=== PATIENT | female | born 1980 | race Hispanic/Latino ===

== ENCOUNTER 2019-07-15 07:58 | Inpatient (IN) | payer SELFPAY ==
[2019-07-15] MEDS ORDERED: HYDROcodone/Acetaminophen 5/325 mg Tablet PO PRN (08:25)
[2019-07-15] MEDS ORDERED: Lidocaine 1% (PF) 30 ML VIAL SC PRN (08:25)
[2019-07-15] MEDS ORDERED: Methylergonovine 0.2 MG/ML VIAL IM PRN (08:25)
[2019-07-15] MEDS ORDERED: Ibuprofen 800 MG TAB PO PRN (08:25)
[2019-07-15] MEDS ORDERED: hydrALAZINE 20 MG/ML VIAL SLOW IVP PRN (08:25)
[2019-07-15] MEDS ORDERED: Promethazine HCl 25 MG/ML VIAL IM PRN (08:25)
[2019-07-15] MEDS ORDERED: Ondansetron PF 4 MG/2 ML Vial IVP PRN (08:25)
[2019-07-15] MEDS ORDERED: Carboprost 250 MCG/ML AMP IM PRN (08:25)
[2019-07-15] MEDS ORDERED: Misoprostol 200 MCG TAB PR PRN (08:25)
[2019-07-15] MEDS ORDERED: NS / Oxytocin 40 units/1000ml 1,000 ML IV PRN (08:25)
[2019-07-15] MEDS ORDERED: Butorphanol Tartrate 1 MG/ML VIAL SLOW IVP PRN (08:25)
[2019-07-15 08:30] VITALS: BMI 26.5
[2019-07-15] MEDS: Lactated Ringer's 1,000 ML IV SCH ×3 (08:57→19:57)
[2019-07-15] MEDS: Misoprostol 100 MCG TAB PO SCH ×2 (09:31→13:46)
[2019-07-15 09:32] LABS: Hemoglobin 12.7 g/dL (12.0-16.0); Mean Corpuscular HGB CONC 35.5 g/dL (32.0-36.0); Mean Corpuscular Hemoglobin 32.5 pg (27.0-31.0); Mean Corpuscular Volume 91.6 fL (78.0-98.0); Mean Platelet Volume 6.8 fL (7.4-10.4); Platelet Count 219 thou/uL (130-400); Red Blood Cell (RBC) Count 3.89 mill/uL (4.20-5.40); White Blood Cell (WBC) Count 6.7 thou/uL (4.8-10.8)
[2019-07-15 09:37] VITALS: BP 109/63; TEMP 98.7
[2019-07-15] MEDS ORDERED: Fentanyl 4 mcg/Bup 0.1% Cadd 0 ML ONE (12:33)
[2019-07-15] MEDS: Misoprostol 200 MCG TAB PO SCH ×2 (18:17→21:19)
[2019-07-16] MEDS ORDERED: Misoprostol 100 MCG TAB VAG SCH (01:00)
[2019-07-16] MEDS ORDERED: Misoprostol 200 MCG TAB VAG SCH (01:00)
[2019-07-16] MEDS ORDERED: Misoprostol 200 MCG TAB PO SCH (07:30)
== END 2019-07-16 10:18 | disposition home or self-care (01) | DRG 805 ==
LOC: L&D 07:58
PROVIDERS: ADMIT Family Medicine; ATTEND Family Medicine
PROC: 10E0XZZ Delivery of Products of Conception, External Approach (ICD-10-PCS; principal; 2019-07-15)
PROC: 3E0P7VZ Introduction of Hormone into Female Reproductive, Via Natural or Artificial Opening (ICD-10-PCS; 2019-07-15)
DX: O02.1 Missed abortion (principal); O24.12 Pre-existing type 2 diabetes mellitus, in childbirth; Z37.1 Single stillbirth; E11.9 Type 2 diabetes mellitus without complications; Z79.4 Long term (current) use of insulin; Z3A.14 14 weeks gestation of pregnancy
CPT/HCPCS: 36415; 36416; 85027; 86850; 86900; 86901; 88305

== ENCOUNTER 2020-04-04 09:46 | Inpatient (IN) | payer OTHER, SELFPAY ==
[2020-04-04] MEDS ORDERED: Senokot S 8.6-50 MG TAB PO PRN (12:14)
[2020-04-04] MEDS ORDERED: Bisacodyl 10 MG SUPP PR PRN (12:14)
[2020-04-04] MEDS ORDERED: Dextrose 50% Abboject 50 ML SYRINGE SLOW IVP PRN (12:14)
[2020-04-04] MEDS ORDERED: Dextrose 5% in Water 1,000 ML IV PRN (12:14)
[2020-04-04] MEDS: Acetaminophen 325 MG TAB PO PRN ×2 (12:50→18:39)
[2020-04-04 13:06] LABS: #Lymphocytes 0.8 thou/uL (1.20-3.40); #Monocytes 0.2 thou/uL (0.11-0.59); #Neutrophils 4.8 thou/uL (1.40-6.50); %Basophils 0.2 % (0.0-1.0); %Eosinophils 0.3 % (0.0-10.0); %Lymphocytes 12.8 % (21.0-51.0); %Monocytes 3.5 % (0.0-10.0); %Neutrophils 83.2 % (42.0-75.0); Hemoglobin 8.9 g/dL (12.0-16.0); Mean Corpuscular HGB CONC 34.6 g/dL (32.0-36.0); Mean Corpuscular Hemoglobin 30.5 pg (27.0-31.0); Mean Corpuscular Volume 88.1 fL (78.0-98.0); Mean Platelet Volume 7.1 fL (7.4-10.4); Platelet Count 257 thou/uL (130-400); RBC Distribution Width 11.4 % (11.5-14.5); Red Blood Cell (RBC) Count 2.91 mill/uL (4.20-5.40); White Blood Cell (WBC) Count 5.8 thou/uL (4.8-10.8)
--- NOTE | 2020-04-04 13:11 | HP ---
REASON FOR ADMISSION: Possible COVID pneumonia, acute respiratory failure with hypoxia, diabetic ketoacidosis earlier. HISTORY OF PRESENTING ILLNESS: The patient initially went to [facility] Emergency Room and was hospitalized overnight for bilateral pneumonia with suspected COVID and DKA. The patient was on insulin drip 1 unit/hour, which was discontinued at the time of transfer. She has had bilateral lower lobe pneumonia. The patient was saturating 96% on 2 L last night and this morning, required high-flow oxygen to keep her saturations up. Her blood pressure also dropped to 89/75, and a decision was made to transfer because she probably will require Pulmonary/Critical Care, which was not available at [facility]. She has had a blood gas done, which showed a pH 7.4, pCO2 of 25, PO2 of 65, and bicarb on the blood gas was 16. Dr. Marianne Ball who gave me a report states her creatinine is normal. Her liver function tests were also within normal limits. She has had a CAT scan of the abdomen and pelvis, which showed infiltrate in the lower lobes in the lungs, otherwise was within normal limits per Dr. Ball. Her chest x-ray showed bilateral lower lobe infiltrates. The plan was to start her on Levophed and transfer her here to critical care unit because of hypotension and acute respiratory failure with suspected COVID pneumonia. PAST MEDICAL AND SURGICAL HISTORY: Diabetes mellitus, type 1. No other medical or surgical histories. CURRENT MEDICATIONS: The patient is on Lantus 28 units subcu at bedtime and Humalog sliding scale. ALLERGIES: NO KNOWN DRUG ALLERGIES. PERSONAL HISTORY: Does not abuse alcohol or drugs. No history of smoking. FAMILY HISTORY: She lives with her . CODE STATUS: Full. 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 REVIEW OF SYSTEMS: Cannot be accurately obtained as the patient is on high-flow oxygen and is coughing pretty frequently, and we will try to obtain the same when she is more stable. PHYSICAL EXAMINATION: GENERAL: The patient is a 39-year-old female who is currently in mild-to- moderate respiratory distress with coughing spells. She is on high-flow oxygen. VITAL SIGNS: Blood pressure 114/76, pulse 90 per minute, respiratory rate 22 per minute, temperature 103 degrees, and saturating 94% on high-flow oxygen. NECK: Supple. No elevated JVD. HEENT: Eyes; extraocular muscles intact. Pupils reacting to light. Oral cavity, mucous membranes are dry. No exudates or congestion. CARDIOVASCULAR SYSTEM: S1, S2 heard. Regular rhythm. Tachycardic. RESPIRATORY SYSTEM: Air entry 1+ bilateral. Scattered rhonchi plus bilateral. ABDOMEN: Soft, bowel sounds heard. No tenderness, rigidity, or guarding. EXTREMITIES: No peripheral edema or calf tenderness. VASCULAR SYSTEM: Peripheral pulses, 1+ bilateral. No ischemic ulcerations or gangrene. CENTRAL NERVOUS SYSTEM: No gross focal deficits noted. The patient is alert, awake, and oriented well. PSYCHIATRIC SYSTEM: The patient's mood is euthymic. No hallucinations or delusions. LABORATORY DATA: Please note, all her labs were done at [facility], and we will try to review them as and when they arrive. A blood gas shows a pH 7.4, pCO2 of 25, PO2 of 65, bicarb on the blood gas was 16 this morning. IMAGING: Chest x-ray done showed bilateral lower lobe infiltrates and CT abdomen and pelvis just confirmed the pneumonia with no acute intraabdominal abnormality , all of these were per verbal sign-out from Dr. Marianne Ball. CLINICAL IMPRESSION AND PLAN: The patient will be admitted to ICU for acute respiratory failure with hypoxia, on high-flow oxygen, now possible COVID pneumonia, resolving diabetic ketoacidosis. We will continue her on Lantus 10 units subcu twice daily. No further fluids will be given instead the patient will be on oral diet as tolerated. She is not requiring Levophed as her blood pressure is stable at present. I have spoken to Dr. Dodson for possible initiation of remdesivir or plasma. Her COVID-19 test is pending. The smear was obtained yesterday. We will be in touch with [facility] to get the results of the same. We will empirically place her on Levaquin for now. Motrin p.r.n. for fever more than 101. We will obtain labs here including CRP, ferritin, LDH, respiratory cultures if she can provide one. The patient mostly has dry cough with no expectoration. She will be on insulin Humalog coverage a.c. and at bedtime with Lantus as mentioned above. I tried to talk to the patient's family with the given spouse number, but the person who picked up the phone does not communicate in German and was suspicious of finding out who I am despite saying 3 times that I was a physician calling from [facility]. The conversation did not proceed further and we will try to update the family as and when they arrive at bedside. Job ID: [id number] MTDD
--- NOTE | 2020-04-04 13:13 | RAD ---
Exam: Chest one view HISTORY:Evaluate infiltrates. Comparison: None FINDINGS: Cardiac silhouette: Normal Aorta: Unremarkable Pulmonary vessels: Normal Costophrenic angles: Bilateral pleural effusions LUNGS: Bibasilar infiltrates, along with additional bilateral suprahilar infiltrates. Pneumothorax: None Osseous abnormalities: None IMPRESSION: Pleural and parenchymal changes. Continued surveillance to ensure resolution is recommend ed
[2020-04-04] MEDS ORDERED: SODIUM CHLORIDE 0.9% FS SCH (13:15)
[2020-04-04] MEDS ORDERED: [UNRECOGNIZED DRUG - OTHER] FS SCH (13:15)
[2020-04-04 13:45] LABS: ALT (SGPT) 78 U/L (8-55); AST (SGOT) 86 U/L (5-34); Albumin 3.2 g/dL (3.5-5.0); Alkaline Phosphatase 273 U/L (40-110); Anion Gap 15 mmol/L (10-20); BUN (Urea Nitrogen) Less than 4 mg/dL (7.0-18.7); Bilirubin, Total 0.4 mg/dL (0.2-1.2); Calc. Creatinine Clearance 120 mL/min (70-130); Calcium 7.5 mg/dL (7.8-10.44); Carbon Dioxide 17 mmol/L (22-29); Chloride 104 mmol/L (98-107); Estimated GFR-MDRD Greater than 90; Globulin 3.4 g/dL (2.4-3.5); Glucose 177 mg/dL (70-105); Potassium 3.1 mmol/L (3.5-5.1); Protein, Total 6.6 g/dL (6.0-8.3); Sodium 133 mmol/L (136-145)
[2020-04-04 13:56] LABS: CRP (Inflammatory) 35.55 mg/dL (= or < 0.5)
--- NOTE | 2020-04-04 15:06 | CON ---
DATE OF CONSULTATION: 04/04/2020 HISTORY OF PRESENT ILLNESS: Mari Ch is a 39-year-old female who is predominantly Dominican speaking. She tells me that she has a brother that has COVID. She also has diabetes. She is transferred to [facility]. Blood gas prior to transfer showed a pH of 7.4, CO2 of 25, PO2 of 65. It is unclear how much oxygen that she is on. PAST MEDICAL HISTORY: Otherwise unremarkable. FAMILY HISTORY: Negative for lung disease in early age. SOCIAL HISTORY: She denies smoking or drinking. REVIEW OF SYSTEMS: Otherwise negative. She denies feeling poorly and actually denies being short of breath. Her only complaint when I saw her today was cough. PHYSICAL EXAMINATION: VITAL SIGNS: Heart rate 108, blood pressure 107/71, respiratory rates in the teens, oximetry is 96, and she is febrile to 103. HEAD AND NECK: Unremarkable. LUNGS: Distant and clear. HEART: Regular rhythm. ABDOMEN: Soft and nontender. EXTREMITIES: Without edema. LABORATORY DATA: White count 5.8, hemoglobin 8.9, and platelets 257. Sodium 133, potassium 3.1, chloride 104, bicarb 17, BUN 15, creatinine 0.4, and glucose 177. C-reactive protein was 35. Liver enzymes were mildly elevated. IMPRESSION: COVID-19 pneumonia. PLAN: Remdesivir and convalescent plasma per the protocol. Follow up C- reactive protein. Keep her in the ICU. Goal O2 saturation 88 to 92. Clinically, she does not appear to need intubation at this time. CRITICAL CARE TIME: 30 minutes. Job ID: [id number] MTDD
[2020-04-04] MEDS: Guaifenesin DM 100-10/5 ML UDCUP PO PRN (20:33)
[2020-04-04] MEDS: Famotidine 20 MG TAB PO SCH (20:34)
[2020-04-04] MEDS: Ibuprofen 600 MG TAB PO PRN (20:34)
[2020-04-04] MEDS: Insulin Glargine 10 UNITS in Pre-Filled Syringe 1 EACH SC SCH (20:36)
[2020-04-04] MEDS: HumaLOG 300 UNITS/3 ML VIAL SC PRN (21:10)
--- NOTE | 2020-04-05 00:48 | CON ---
DATE OF CONSULTATION: 04/04/2020 REASON FOR CONSULTATION: Diffuse pneumonia, likely COVID. 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 Her children will go to school here in town and they kind of go back and forth and she initially went to [facility] and with bilateral pneumonia suspected with COVID, was started on insulin drip because of DKA and she is requiring high-flow oxygen to keep saturations up and initial pH was 7.4, pCO2 of 25, PO2 of 65. PAST MEDICAL HISTORY: Includes type 1 diabetes, but no other history and she had been on Lantus insulin and Humalog sliding scale. She had quite a bit of nausea and lack of sense of smell and some headaches and quite a bit of dyspnea and coughing frequently, but no sputum production. No abdominal pain or diarrhea. No genitourinary symptoms. No joint symptoms or skin disorder. No neurological symptoms. PAST MEDICAL HISTORY: Type 1 one diabetes. I believe she is G3, P3. ALLERGIES: NONE. 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 Never smoker. No drug use. No alcoholic beverage use. FAMILY HISTORY: Lives with , both here as well as in [place], kind of goes back and forth with the kids to visit him and stay with him when he is there and then the kids go to school here in town. Obviously, they are out of school now with this epidemic. PHYSICAL EXAMINATION: VITAL SIGNS: T-max 103.3, blood pressure 112/67, respiratory rate 26 to 30, O2 saturation 99%. GENERAL: She appears in distress. She is tachypneic. She is upset about this development. Ocular movements conjugate. SKIN: Facial skin is flushed. LUNGS: Diminished lungs sounds. Faint crackles at the bases. HEART: S1 and S2, regular rate without murmurs. ABDOMEN: Soft, not distended or tender. No ascites. No bladder distention. No joint inflammatory activity. No edema. Pulses 1+ in dorsalis pedis. Moves extremities equally. Oriented. Follows commands. Speaks Yi mostly. LABORATORY DATA: White cell count 5.8, hemoglobin 8.9, MCV 88, 82% neutrophils. Lymphocytes are low at 800. Creatinine 0.69, ferritin 436, LDH 422. CRP was 35, albumin 3.2. There is a respiratory virus PCR panel which was negative. COVID test is pending at this point. She has been started on remdesivir. RADIOLOGY RESULTS: We have a chest x-ray with pleural parenchymal changes, bibasilar infiltrates, additional suprahilar infiltrates. ASSESSMENT: Type 1 diabetes and bilateral pneumonia, lymphocytopenia, likely COVID pneumonia. She will continue on levofloxacin and remdesivir until we have the results hopefully by tomorrow. Continue monitoring liver function tests daily as well as basic metabolic panel. I explained to the patient that remdesivir is an emergency use authorization medication which has been shown in control trial that it reduces the time course of COVID pneumonia. She still has hopes that she does not have the illness, but it is very likely that she does. We will discuss potential liver toxicity and kidney issues with administration of this drug and that she will be monitored for that. The patient agreed with the intervention at the moment. Job ID: [id number]
[2020-04-05] MEDS: Guaifenesin DM 100-10/5 ML UDCUP PO PRN ×2 (00:54→10:53)
[2020-04-05 04:37] LABS: ALT (SGPT) 94 U/L (8-55); AST (SGOT) 107 U/L (5-34); Alkaline Phosphatase 301 U/L (40-110); Anion Gap 15 mmol/L (10-20); BUN (Urea Nitrogen) 5 mg/dL (7.0-18.7); Bilirubin, Direct 0.5 mg/dL (0.1-0.3); Bilirubin, Total 0.6 mg/dL (0.2-1.2); Calc. Creatinine Clearance 129 mL/min (70-130); Calcium 7.4 mg/dL (7.8-10.44); Carbon Dioxide 19 mmol/L (22-29); Chloride 106 mmol/L (98-107); Estimated GFR-MDRD Greater than 90; Glucose 266 mg/dL (70-105); Protein, Total 6.3 g/dL (6.0-8.3); Sodium 137 mmol/L (136-145)
[2020-04-05 04:41] LABS: Potassium 2.7 mmol/L (3.5-5.1)
[2020-04-05] MEDS ORDERED: CCU ELECTROLYTE REPLACEMENT PROTOCOL FS PRN (05:29)
[2020-04-05] MEDS ORDERED: Potassium Chloride 40 MEQ in Sodium Chloride 0.9% 250 ML 250 ML IVPB PRN (05:29)
[2020-04-05] MEDS ORDERED: Potassium Chloride 40 MEQ in Premix Bag 1 BAG IVPB PRN (05:29)
[2020-04-05] MEDS ORDERED: Potassium Phosphate 15 MMOL in Sodium Chloride 0.9% 250 ML 250 ML IV PRN (05:29)
[2020-04-05] MEDS ORDERED: Potassium Phosphate 12 MMOL in Sodium Chloride 0.9% 250 ML 250 ML IV PRN (05:29)
[2020-04-05] MEDS ORDERED: PHOS-NAK 1 PKT PACK PO PRN ×2 (05:29)
[2020-04-05] MEDS ORDERED: Magnesium 2 GM/50 ML 2 GM in Premix Bag 1 BAG IVPB PRN (05:29)
[2020-04-05] MEDS ORDERED: Magnesium Oxide 400 MG TAB PO PRN ×2 (05:29)
[2020-04-05] MEDS ORDERED: Potassium Phosphate 9 MMOL in Sodium Chloride 0.9% 100 ML IVPB PRN (05:29)
[2020-04-05] MEDS: Potassium Chloride 20 MEQ TAB PO PRN ×2 (05:51→10:53)
[2020-04-05] MEDS: HumaLOG 300 UNITS/3 ML VIAL SC PRN ×3 (05:52→16:00)
[2020-04-05] MEDS: Ondansetron PF 4 MG/2 ML Vial IVP PRN (06:00)
[2020-04-05] MEDS: Famotidine 20 MG TAB PO SCH ×2 (07:42→19:41)
[2020-04-05] MEDS: Enoxaparin Sodium 40 MG/0.4 ML SYRINGE SC SCH (07:42)
[2020-04-05] MEDS: Insulin Glargine 10 UNITS in Pre-Filled Syringe 1 EACH SC SCH ×2 (07:53→19:47)
[2020-04-05] MEDS: REMDESIVIR FS SCH (09:20)
[2020-04-05 10:31] LABS: Potassium 3.1 mmol/L (3.5-5.1)
--- NOTE | 2020-04-05 10:58 | PRG ---
DATE OF SERVICE: 04/05/2020 SUBJECTIVE: Ms. Ch remains clinically stable. Oximetry is 100%. Her hemodynamics has been stable. OBJECTIVE: VITAL SIGNS: Blood pressure this morning is 114/75, heart rate is 102, respiratory rates in the 20s, oximetry is 100%. LUNGS: Unchanged. HEART: Unchanged. HEART: Unchanged. LABORATORY DATA: There is no new lab today other than electrolytes. Potassium is low at 2.7, creatinine is 0.64, AST is 107, ALT is 94. IMPRESSION: COVID-19 pneumonia, clinically stable at this point in time. She could hopefully be weaned to a nasal cannula soon. Job ID: [id number] MTDD
--- NOTE | 2020-04-05 11:17 | PDOC.HOSPP ---
- Subjective Encounter Date: 04/05/20 Encounter Time: 11:30 Subjective: Patient doing ok on high flow oxygen. Has persistent dry cough, not controlled with robitussin DM. Still with some nausea but able to eat. - Objective Vital Signs & Weight: Vital Signs (12 hours) Temp Pulse Ox 04/05/20 08:00 99.0 F 100 Weight Weight 152 lb 8.958 oz Most Recent Monitor Data Heart Rate from ECG 102 NIBP 114/75 NIBP BP-Mean 88 Respiration from ECG 22 SpO2 100 I&O: 04/04/20 04/05/20 04/06/20 06:59 06:59 06:59 Intake Total 960 290 Output Total 1875 250 Balance -915 40 Result Diagrams: 04/04/20 12:58 04/05/20 10:06 Additional Labs: Accuchecks 04/05/20 04/04/20 04/04/20 05:59 21:08 15:52 POC Glucose 234 H 290 H 169 H Hospitalist ROS - Review of Systems Constitutional: denies: fever, chills Respiratory: reports: cough, shortness of breath Cardiovascular: denies: chest pain, palpitations Gastrointestinal: reports: nausea. denies: vomiting, abdominal pain - Medication Medications: Active Medications Generic Name Dose Route Start Last Admin Trade Name Freq PRN Reason Stop Dose Admin Acetaminophen 650 mg 04/04/20 12:14 04/04/20 18:39 Tylenol PO 650 mg Q4H PRN Administration Headache/Fever/Mild Pain (1-3) Enoxaparin Sodium 40 mg 04/05/20 09:00 04/05/20 07:42 Lovenox SC 40 mg 0900 ASIF Administration Famotidine 20 mg 04/04/20 21:00 04/05/20 07:42 Pepcid PO 20 mg BID ASIF Administration Guaifenesin/Dextromethorphan 15 ml 04/04/20 12:14 04/05/20 10:53 Robitussin Dm PO 15 ml Q4H PRN Administration Cough Insulin Glargine 10 units/ 0.1 mls @ 0 mls/hr 04/04/20 21:00 04/05/20 07:53 Miscellaneous Medication SC 0.1 mls BID ASIF Administration Levofloxacin 500 mg/ Device 100 mls @ 100 mls/hr 04/04/20 13:00 04/04/20 13: 14 IVPB 100 mls Q24HR ASIF Administration Remdesivir 250 mls @ 250 mls/hr 04/05/20 09:00 04/05/20 09:20 FS 04/08/20 09:59 250 mls 0900 ASIF Administration Ibuprofen 600 mg 04/04/20 12:24 04/04/20 20:34 Motrin PO 600 mg Q8H PRN Administration fever >101 Insulin Human Lispro 0 units 04/04/20 12:14 04/05/20 10:56 Humalog SC 4 unit .MODERATE SLIDING SC PRN Administration Moderate Correctional Scale Insulin Human Lispro 0 units 04/04/20 12:14 04/04/20 21:10 Humalog SC 3 unit .BEDTIME SLIDING SC PRN Administration Bedtime Correctional Scale Ondansetron HCl 4 mg 04/04/20 12:14 04/05/20 06:00 Zofran IVP 4 mg Q6H PRN Administration Nausea/Vomiting Potassium Chloride 40 meq 04/05/20 05:29 04/05/20 10:53 K-Dur PO 40 meq ASDIR PRN Administration FOR SERUM K+ 2.5 - 3.5 Sodium Chloride 10 ml 04/04/20 21:00 04/04/20 20:34 Flush - Normal Saline IVF 10 ml Q12HR ASIF Administration - Exam General Appearance: NAD, awake alert ENT: moist mucosa Heart: RRR, no murmur, no gallops, no rubs Respiratory: no tachypnea Respiratory - other findings: bibasilar rhonchi Neurological: cranial nerve grossly intact Musculoskeletal: normal tone, normal strength Psychiatric: normal affect, normal behavior, A&O x 3 Hosp A/P (1) Pneumonia due to COVID-19 virus Code(s): U07.1 - COVID-19; J12.89 - OTHER VIRAL PNEUMONIA Status: Acute (2) Acute respiratory failure with hypoxia Code(s): J96.01 - ACUTE RESPIRATORY FAILURE WITH HYPOXIA Status: Acute (3) Diabetes mellitus type 1 Status: Chronic (4) DKA (diabetic ketoacidoses) Code(s): E11.10 - TYPE 2 DIABETES MELLITUS WITH KETOACIDOSIS WITHOUT COMA Status: Resolved (5) Hypokalemia Code(s): E87.6 - HYPOKALEMIA Status: Acute Plan: replacing - Plan High flow nasal cannula Dr. Weems and Dr. Dodson consulted Recieving Remdesivir, monitoring LFTs Covid-19 test from [facility] reportedly positive
[2020-04-05] MEDS: Ibuprofen 600 MG TAB PO PRN (12:55)
[2020-04-05 14:29] VITALS: BMI 27.0
[2020-04-05] MEDS ORDERED: ALPRAZolam 0.25 MG TAB PO SCH (19:30)
[2020-04-05] MEDS: Acetaminophen 325 MG TAB PO PRN (19:41)
[2020-04-06 04:15] LABS: ALT (SGPT) 85 U/L (8-55); AST (SGOT) 51 U/L (5-34); Alkaline Phosphatase 291 U/L (40-110); Anion Gap 15 mmol/L (10-20); BUN (Urea Nitrogen) 7 mg/dL (7.0-18.7); Bilirubin, Total 0.5 mg/dL (0.2-1.2); CRP (Inflammatory) 27.04 mg/dL (= or < 0.5); Calc. Creatinine Clearance 133 mL/min (70-130); Calcium 7.6 mg/dL (7.8-10.44); Carbon Dioxide 20 mmol/L (22-29); Chloride 108 mmol/L (98-107); Estimated GFR-MDRD Greater than 90; Globulin 3.5 g/dL (2.4-3.5); Glucose 209 mg/dL (70-105); Potassium 3.1 mmol/L (3.5-5.1); Protein, Total 6.5 g/dL (6.0-8.3); Sodium 140 mmol/L (136-145)
[2020-04-06] MEDS: HumaLOG 300 UNITS/3 ML VIAL SC PRN ×3 (04:27→17:42)
[2020-04-06] MEDS: Potassium Chloride 20 MEQ TAB PO PRN (04:27)
[2020-04-06 06:09] LABS: #Lymphocytes 0.9 thou/uL (1.20-3.40); #Monocytes 0.3 thou/uL (0.11-0.59); #Neutrophils 2.9 thou/uL (1.40-6.50); %Basophils 0.6 % (0.0-1.0); %Eosinophils 0.2 % (0.0-10.0); %Lymphocytes 22.1 % (21.0-51.0); %Monocytes 7.5 % (0.0-10.0); %Neutrophils 69.6 % (42.0-75.0); Hemoglobin 11.7 g/dL (12.0-16.0); Mean Corpuscular HGB CONC 33.1 g/dL (32.0-36.0); Mean Corpuscular Hemoglobin 29.2 pg (27.0-31.0); Mean Corpuscular Volume 88.2 fL (78.0-98.0); Mean Platelet Volume 7.3 fL (7.4-10.4); Platelet Count 270 thou/uL (130-400); RBC Distribution Width 11.8 % (11.5-14.5); Red Blood Cell (RBC) Count 4.02 mill/uL (4.20-5.40); White Blood Cell (WBC) Count 4.1 thou/uL (4.8-10.8)
[2020-04-06] MEDS: Famotidine 20 MG TAB PO SCH ×2 (08:10→20:34)
[2020-04-06] MEDS: Guaifenesin DM 100-10/5 ML UDCUP PO PRN ×2 (08:10→13:48)
[2020-04-06] MEDS: Insulin Glargine 10 UNITS in Pre-Filled Syringe 1 EACH SC SCH ×2 (08:10→20:34)
[2020-04-06] MEDS: REMDESIVIR FS SCH (08:10)
[2020-04-06] MEDS: Enoxaparin Sodium 40 MG/0.4 ML SYRINGE SC SCH (08:11)
[2020-04-06] MEDS ORDERED: ALPRAZolam 0.25 MG TAB PO PRN (09:55)
--- NOTE | 2020-04-06 09:56 | PDOC.HOSPP ---
- Subjective Encounter Date: 04/06/20 Encounter Time: 16:00 Subjective: Patient with persistent cough. Shortness of breath improved. No chest pain. Some nausea and not eating much. - Objective Vital Signs & Weight: Vital Signs (12 hours) Temp Pulse Ox 04/06/20 07:00 99.7 F H 04/06/20 02:21 94 L Weight Admit Weight 152 lb Weight 152 lb 8.958 oz Most Recent Monitor Data Heart Rate from ECG 99 NIBP 113/77 NIBP BP-Mean 89 Respiration from ECG 34 SpO2 95 I&O: 04/05/20 04/06/20 04/07/20 06:59 06:59 06:59 Intake Total 960 1090 240 Output Total 1875 1740 175 Balance -915 -650 65 Result Diagrams: 04/06/20 05:51 04/06/20 03:35 Additional Labs: Accuchecks 04/05/20 04/05/20 04/05/20 19:51 16:04 10:46 POC Glucose 159 H 171 H 216 H Hospitalist ROS - Review of Systems Constitutional: denies: fever, chills Respiratory: reports: cough. denies: shortness of breath Cardiovascular: denies: chest pain Gastrointestinal: reports: nausea. denies: vomiting, abdominal pain - Medication Medications: Active Medications Generic Name Dose Route Start Last Admin Trade Name Freq PRN Reason Stop Dose Admin Acetaminophen 650 mg 04/04/20 12:14 04/05/20 19:41 Tylenol PO 650 mg Q4H PRN Administration Headache/Fever/Mild Pain (1-3) Enoxaparin Sodium 40 mg 04/05/20 09:00 04/06/20 08:11 Lovenox SC 40 mg 0900 ASIF Administration Famotidine 20 mg 04/04/20 21:00 04/06/20 08:10 Pepcid PO 20 mg BID ASIF Administration Guaifenesin/Dextromethorphan 15 ml 04/04/20 12:14 04/06/20 08:10 Robitussin Dm PO 15 ml Q4H PRN Administration Cough Insulin Glargine 10 units/ 0.1 mls @ 0 mls/hr 04/04/20 21:00 04/06/20 08:10 Miscellaneous Medication SC 0.1 mls BID ASIF Administration Levofloxacin 500 mg/ Device 100 mls @ 100 mls/hr 04/04/20 13:00 04/05/20 12: 58 IVPB 100 mls Q24HR ASIF Administration Remdesivir 250 mls @ 250 mls/hr 04/05/20 09:00 04/06/20 08:10 FS 04/08/20 09:59 250 mls 0900 ASIF Administration Ibuprofen 600 mg 04/04/20 12:24 04/05/20 12:55 Motrin PO 600 mg Q8H PRN Administration fever >101 Insulin Human Lispro 0 units 04/04/20 12:14 04/06/20 04:27 Humalog SC 4 unit .MODERATE SLIDING SC PRN Administration Moderate Correctional Scale Insulin Human Lispro 0 units 04/04/20 12:14 04/04/20 21:10 Humalog SC 3 unit .BEDTIME SLIDING SC PRN Administration Bedtime Correctional Scale Ondansetron HCl 4 mg 04/04/20 12:14 04/05/20 06:00 Zofran IVP 4 mg Q6H PRN Administration Nausea/Vomiting Potassium Chloride 40 meq 04/05/20 05:29 04/06/20 04:27 K-Dur PO 40 meq ASDIR PRN Administration FOR SERUM K+ 2.5 - 3.5 Sodium Chloride 10 ml 04/04/20 21:00 04/06/20 08:11 Flush - Normal Saline IVF 10 ml Q12HR ASIF Administration - Exam General Appearance: NAD, awake alert ENT: moist mucosa Heart: RRR, no murmur, no gallops, no rubs Respiratory: no wheezes, no rales, no tachypnea Respiratory - other findings: scattered ronchi Gastrointestinal: soft, non-tender, non-distended, normal bowel sounds Psychiatric: normal affect, normal behavior, A&O x 3 Hosp A/P (1) Pneumonia due to COVID-19 virus Code(s): U07.1 - COVID-19; J12.89 - OTHER VIRAL PNEUMONIA Status: Acute (2) Acute respiratory failure with hypoxia Code(s): J96.01 - ACUTE RESPIRATORY FAILURE WITH HYPOXIA Status: Acute (3) Diabetes mellitus type 1 Status: Chronic (4) DKA (diabetic ketoacidoses) Code(s): E11.10 - TYPE 2 DIABETES MELLITUS WITH KETOACIDOSIS WITHOUT COMA Status: Resolved (5) Hypokalemia Code(s): E87.6 - HYPOKALEMIA Status: Acute - Plan High flow nasal cannula, wean off as tolerated Dr. Weems and Dr. Dodson consulted Recieving Remdesivir, monitoring LFTs- trending down today Covid-19 test from [facility] reportedly positive- discontinuing antibiotics Potassium stable, replacing.
[2020-04-06] MEDS: Acetaminophen 325 MG TAB PO PRN (11:21)
[2020-04-06] MEDS ORDERED: Ondansetron ODT 4 MG TAB PO PRN (17:04)
--- NOTE | 2020-04-06 17:11 | PRG ---
DATE OF SERVICE: 04/06/2020 SUBJECTIVE: Mari Ch has been weaned down to nasal cannula. OBJECTIVE: VITAL SIGNS: She is afebrile. Heart rate is 88, respiratory rates in the 20s, oximetry is 93 on 1 L cannula, blood pressure is 112/77. LUNGS: Unchanged. HEART: Unchanged. ABDOMEN: Unchanged. IMPRESSION: COVID-19 pneumonia, dramatically improved after remdesivir and convalescent plasma. She may be a candidate to go home in 24 to 48 hours. She is stable to move out of Critical Care to a medical bed. Job ID: [id number]
[2020-04-06] MEDS: Benzonatate 100 MG CAP PO PRN (17:36)
[2020-04-07] MEDS: HumaLOG 300 UNITS/3 ML VIAL SC PRN ×3 (05:31→20:49)
[2020-04-07] MEDS: Dexamethasone 6 MG in Sodium Chloride 0.9% 50 ML IVPB SCH (09:28)
[2020-04-07] MEDS: REMDESIVIR FS SCH (09:28)
[2020-04-07] MEDS: Enoxaparin Sodium 40 MG/0.4 ML SYRINGE SC SCH (09:28)
[2020-04-07] MEDS: Insulin Glargine 10 UNITS in Pre-Filled Syringe 1 EACH SC SCH ×2 (09:29→20:36)
[2020-04-07] MEDS: Famotidine 20 MG TAB PO SCH (09:30)
[2020-04-07] MEDS: Benzonatate 100 MG CAP PO PRN ×2 (09:51→20:36)
[2020-04-07] MEDS: Ondansetron PF 4 MG/2 ML Vial IVP PRN (09:51)
[2020-04-07] MEDS ORDERED: Acetaminophen/Codeine 30-300mg Tablet PO PRN (12:43)
--- NOTE | 2020-04-07 12:44 | PDOC.HOSPP ---
- Subjective Encounter Date: 04/07/20 Encounter Time: 10:00 Subjective: Patient seen and examined. pt is on 3 liter nasal cannula, she is very weak, she has cough - Objective Vital Signs & Weight: Vital Signs (12 hours) Temp Pulse Resp BP Pulse Ox 04/07/20 10:48 98.9 F 89 20 114/77 94 L 04/07/20 02:57 93 L 04/07/20 02:45 98.6 F 85 18 110/73 94 L Weight Admit Weight 152 lb Weight 152 lb 8.958 oz Most Recent Monitor Data Heart Rate from ECG 99 NIBP 114/69 NIBP BP-Mean 84 Respiration from ECG 29 SpO2 99 I&O: 04/06/20 04/07/20 04/08/20 06:59 06:59 06:59 Intake Total 1090 763 Output Total 1740 310 Balance -650 453 Result Diagrams: 04/06/20 05:51 04/06/20 03:35 Additional Labs: Accuchecks 04/07/20 04/06/20 04/06/20 05:33 20:43 16:23 POC Glucose 172 H 155 H 256 H Radiology Reviewed by me: Yes EKG Reviewed by me: Yes Hospitalist ROS - Review of Systems Constitutional: reports: weakness, malaise. denies: fever, chills, sweats, other ENT: denies: ear pain, ear discharge, nose pain, nose discharge, nose congestion , mouth pain, mouth swelling, throat pain, throat swelling, other Respiratory: reports: cough, shortness of breath. denies: dry, hemoptysis, SOB with excertion, pleuritic pain, sputum, wheezing, other Cardiovascular: denies: chest pain, palpitations, orthopnea, paroxysmal noc. dyspnea, edema, light headedness, other Gastrointestinal: denies: nausea, vomiting, abdominal pain, diarrhea, constipation, melena, hematochezia, other Genitourinary: denies: dysuria, frequency, incontinence, hematuria, retention, other Musculoskeletal: denies: neck pain, shoulder pain, arm pain, back pain, hand pain, leg pain, foot pain, other Skin: denies: rash, lesions, harjinder, bruising, other - Medication Medications: Active Medications Generic Name Dose Route Start Last Admin Trade Name Freq PRN Reason Stop Dose Admin Acetaminophen 650 mg 04/04/20 12:14 04/06/20 11:21 Tylenol PO 650 mg Q4H PRN Administration Headache/Fever/Mild Pain (1-3) Alprazolam 0.25 mg 04/06/20 09:55 04/06/20 11:21 Xanax PO 0.25 mg BIDPRN PRN Administration Anxiety Benzonatate 200 mg 04/06/20 17:01 04/07/20 09:51 Tessalon PO 200 mg TIDPRN PRN Administration Cough Enoxaparin Sodium 40 mg 04/05/20 09:00 04/07/20 09:28 Lovenox SC 40 mg 0900 ASIF Administration Famotidine 20 mg 04/04/20 21:00 04/07/20 09:30 Pepcid PO Not Given BID ASIF Insulin Glargine 10 units/ 0.1 mls @ 0 mls/hr 04/04/20 21:00 04/07/20 09:29 Miscellaneous Medication SC 0.1 mls BID ASIF Administration Remdesivir 250 mls @ 250 mls/hr 04/05/20 09:00 04/07/20 09:28 FS 04/08/20 09:59 250 mls 0900 ASIF Administration Dexamethasone 6 mg/ Sodium 50.6 mls @ 100 mls/hr 04/07/20 09:00 04/07/20 09: 28 Chloride IVPB 50.6 mls DAILY ASIF Administration Ibuprofen 600 mg 04/04/20 12:24 04/05/20 12:55 Motrin PO 600 mg Q8H PRN Administration fever >101 Insulin Human Lispro 0 units 04/04/20 12:14 04/07/20 05:31 Humalog SC 2 unit .MODERATE SLIDING SC PRN Administration Moderate Correctional Scale Insulin Human Lispro 0 units 04/04/20 12:14 04/04/20 21:10 Humalog SC 3 unit .BEDTIME SLIDING SC PRN Administration Bedtime Correctional Scale Ondansetron HCl 4 mg 04/04/20 12:14 04/07/20 09:51 Zofran IVP 4 mg Q6H PRN Administration Nausea/Vomiting Potassium Chloride 40 meq 04/05/20 05:29 04/06/20 04:27 K-Dur PO 40 meq ASDIR PRN Administration FOR SERUM K+ 2.5 - 3.5 Sodium Chloride 10 ml 04/04/20 21:00 04/07/20 09:29 Flush - Normal Saline IVF 10 ml Q12HR ASIF Administration - Exam General Appearance: NAD, awake alert Eye: PERRL, anicteric sclera ENT: normocephalic atraumatic, no oropharyngeal lesions Neck: supple, symmetric, no JVD, no thyromegaly Heart: RRR, no murmur, no gallops, no rubs Respiratory: CTAB, no wheezes, no rales Gastrointestinal: soft, non-tender, non-distended Extremities: no cyanosis, no clubbing Skin: normal turgor, no lesions Neurological: no focal deficits Musculoskeletal: normal tone, normal strength Psychiatric: normal affect, normal behavior Hosp A/P (1) Acute respiratory failure with hypoxia Code(s): J96.01 - ACUTE RESPIRATORY FAILURE WITH HYPOXIA Status: Acute (2) Hypokalemia Code(s): E87.6 - HYPOKALEMIA Status: Acute (3) Pneumonia due to COVID-19 virus Code(s): U07.1 - COVID-19; J12.89 - OTHER VIRAL PNEUMONIA Status: Acute (4) Abnormal LFTs Code(s): R94.5 - ABNORMAL RESULTS OF LIVER FUNCTION STUDIES Status: Acute - Plan old records reviewed/req continue decadron repeat labs medication reviewed symptomatic treatment wean off oxygen as tolerated not ready yet for discharge
[2020-04-07] MEDS ORDERED: Loperamide HCl 2 MG CAP PO PRN (14:07)
[2020-04-07] MEDS ORDERED: Cepastat Lozenges 1 LOZ PO PRN (14:07)
[2020-04-07] MEDS ORDERED: Sodium Chloride 0.65% Nasal 44 ML BOT EA NARE PRN (14:07)
[2020-04-07] MEDS ORDERED: Calcium Carbonate 500 MG ChewTAB PO PRN (14:07)
[2020-04-07] MEDS ORDERED: Artificial Tears 18 DROP/0.9 ML EA EYE PRN (14:07)
[2020-04-07] MEDS ORDERED: diphenhydrAMINE 25 MG CAP PO PRN (14:07)
[2020-04-07] MEDS ORDERED: hydrALAZINE 20 MG/ML VIAL SLOW IVP PRN (14:07)
[2020-04-08] MEDS: Benzonatate 100 MG CAP PO PRN ×3 (03:58→21:24)
[2020-04-08] MEDS: HumaLOG 300 UNITS/3 ML VIAL SC PRN ×4 (05:46→21:29)
[2020-04-08 06:57] LABS: #Lymphocytes 0.6 thou/uL (1.20-3.40); #Monocytes 0.3 thou/uL (0.11-0.59); #Neutrophils 2.7 thou/uL (1.40-6.50); %Basophils 0.2 % (0.0-1.0); %Eosinophils 0.2 % (0.0-10.0); %Lymphocytes 15.7 % (21.0-51.0); %Neutrophils 76.8 % (42.0-75.0); Hemoglobin 11.6 g/dL (12.0-16.0); Mean Corpuscular HGB CONC 33.2 g/dL (32.0-36.0); Mean Corpuscular Hemoglobin 29.6 pg (27.0-31.0); Mean Corpuscular Volume 88.9 fL (78.0-98.0); Mean Platelet Volume 6.9 fL (7.4-10.4); Platelet Count 388 thou/uL (130-400); Red Blood Cell (RBC) Count 3.92 mill/uL (4.20-5.40); White Blood Cell (WBC) Count 3.6 thou/uL (4.8-10.8)
[2020-04-08 07:24] LABS: ALT (SGPT) 54 U/L (8-55); AST (SGOT) 27 U/L (5-34); Albumin 2.9 g/dL (3.5-5.0); Alkaline Phosphatase 246 U/L (40-110); Anion Gap 13 mmol/L (10-20); BUN (Urea Nitrogen) 10 mg/dL (7.0-18.7); Bilirubin, Total 0.3 mg/dL (0.2-1.2); CRP (Inflammatory) 19.29 mg/dL (= or < 0.5); Calc. Creatinine Clearance 117 mL/min (70-130); Carbon Dioxide 22 mmol/L (22-29); Chloride 104 mmol/L (98-107); Estimated GFR-MDRD Greater than 90; Globulin 3.4 g/dL (2.4-3.5); Glucose 297 mg/dL (70-105); Potassium 3.4 mmol/L (3.5-5.1); Protein, Total 6.3 g/dL (6.0-8.3); Sodium 136 mmol/L (136-145)
[2020-04-08] MEDS ORDERED: Potassium Chloride 20 MEQ TAB PO SCH (08:30)
[2020-04-08] MEDS: REMDESIVIR FS SCH (09:43)
[2020-04-08] MEDS: Insulin Glargine 10 UNITS in Pre-Filled Syringe 1 EACH SC SCH (09:43)
[2020-04-08] MEDS: Enoxaparin Sodium 40 MG/0.4 ML SYRINGE SC SCH (09:44)
[2020-04-08] MEDS: Ascorbic Acid 500 mg Chewable Tablet PO SCH (09:44)
[2020-04-08] MEDS: Dexamethasone 6 MG in Sodium Chloride 0.9% 50 ML IVPB SCH (09:44)
[2020-04-08] MEDS: Zinc Sulfate 220 MG CAP PO SCH (09:47)
--- NOTE | 2020-04-08 10:36 | PDOC.HOSPP ---
- Subjective Encounter Date: 04/08/20 Encounter Time: 09:55 Subjective: Patient seen and examined. No new complaints. No overnight events - Objective Vital Signs & Weight: Vital Signs (12 hours) Pulse Ox 04/08/20 04:24 94 L Weight Admit Weight 152 lb Weight 152 lb 8.958 oz Most Recent Monitor Data Heart Rate from ECG 99 NIBP 114/69 NIBP BP-Mean 84 Respiration from ECG 29 SpO2 99 I&O: 04/07/20 04/08/20 04/09/20 06:59 06:59 06:59 Intake Total 763 Output Total 310 Balance 453 Result Diagrams: 04/08/20 06:21 04/08/20 06:21 Additional Labs: Accuchecks 04/08/20 04/07/20 04/07/20 05:41 20:46 16:38 POC Glucose 292 H 283 H 274 H 04/07/20 13:13 POC Glucose 246 H Hospitalist ROS - Review of Systems ENT: denies: ear pain, ear discharge, nose pain, nose discharge, nose congestion , mouth pain, mouth swelling, throat pain, throat swelling, other Respiratory: denies: cough, dry, shortness of breath, hemoptysis, SOB with excertion, pleuritic pain, sputum, wheezing, other Cardiovascular: denies: chest pain, palpitations, orthopnea, paroxysmal noc. dyspnea, edema, light headedness, other Gastrointestinal: denies: nausea, vomiting, abdominal pain, diarrhea, constipation, melena, hematochezia, other Genitourinary: denies: dysuria, frequency, incontinence, hematuria, retention, other Musculoskeletal: denies: neck pain, shoulder pain, arm pain, back pain, hand pain, leg pain, foot pain, other - Medication Medications: Active Medications Generic Name Dose Route Start Last Admin Trade Name Freq PRN Reason Stop Dose Admin Acetaminophen 650 mg 04/04/20 12:14 04/06/20 11:21 Tylenol PO 650 mg Q4H PRN Administration Headache/Fever/Mild Pain (1-3) Alprazolam 0.25 mg 04/06/20 09:55 04/06/20 11:21 Xanax PO 0.25 mg BIDPRN PRN Administration Anxiety Ascorbic Acid 1,000 mg 04/08/20 09:00 04/08/20 09:44 Vitamin C PO 1,000 mg DAILY ASIF Administration Benzonatate 200 mg 04/06/20 17:01 04/08/20 09:44 Tessalon PO 200 mg TIDPRN PRN Administration Cough Enoxaparin Sodium 40 mg 04/05/20 09:00 04/08/20 09:44 Lovenox SC 40 mg 0900 ASIF Administration Insulin Glargine 10 units/ 0.1 mls @ 0 mls/hr 04/04/20 21:00 04/08/20 09:43 Miscellaneous Medication SC 0.1 mls BID ASIF Administration Dexamethasone 6 mg/ Sodium 50.6 mls @ 100 mls/hr 04/07/20 09:00 04/08/20 09: 44 Chloride IVPB 50.6 mls DAILY ASIF Administration Insulin Human Lispro 0 units 04/04/20 12:14 04/08/20 05:46 Humalog SC 6 unit .MODERATE SLIDING SC PRN Administration Moderate Correctional Scale Insulin Human Lispro 0 units 04/04/20 12:14 04/07/20 20:49 Humalog SC 3 unit .BEDTIME SLIDING SC PRN Administration Bedtime Correctional Scale Ondansetron HCl 4 mg 04/04/20 12:14 04/07/20 09:51 Zofran IVP 4 mg Q6H PRN Administration Nausea/Vomiting Pantoprazole Sodium 40 mg 04/08/20 09:00 04/08/20 09:44 Protonix PO 40 mg DAILY ASIF Administration Sodium Chloride 10 ml 04/04/20 21:00 04/08/20 09:45 Flush - Normal Saline IVF 10 ml Q12HR ASIF Administration Zinc Sulfate 220 mg 04/08/20 09:00 04/08/20 09:47 Zinc Sulfate PO 220 mg DAILY ASIF Administration - Exam General Appearance: NAD, awake alert Eye: PERRL, anicteric sclera ENT: normocephalic atraumatic, no oropharyngeal lesions Neck: supple, symmetric, no JVD, no thyromegaly Heart: RRR, no murmur, no gallops, no rubs Respiratory: CTAB, no wheezes, no rales Gastrointestinal: soft, non-tender, non-distended Extremities: no cyanosis, no clubbing Skin: normal turgor, no lesions Neurological: no focal deficits Musculoskeletal: normal tone, normal strength Psychiatric: normal affect, normal behavior Hosp A/P (1) Acute respiratory failure with hypoxia Code(s): J96.01 - ACUTE RESPIRATORY FAILURE WITH HYPOXIA Status: Acute (2) Hypokalemia Code(s): E87.6 - HYPOKALEMIA Status: Acute (3) Pneumonia due to COVID-19 virus Code(s): U07.1 - COVID-19; J12.89 - OTHER VIRAL PNEUMONIA Status: Acute (4) Abnormal LFTs Code(s): R94.5 - ABNORMAL RESULTS OF LIVER FUNCTION STUDIES Status: Acute - Plan old records reviewed/req, respiratory therapy continue decadron repeat labs medication reviewed symptomatic treatment wean off oxygen as tolerated not ready yet for discharge 04/08/20 continue to wean off oxygen as tolerated ambulate in room on decadron continue vitamin supplement, medication reviewed and supportive care symptomatic treatment replace potassium today decadron increasing her blood sugar, will increase 15 unit sc bid
[2020-04-08] MEDS: Insulin Glargine 15 UNITS in Pre-Filled Syringe 1 EACH SC SCH (21:24)
[2020-04-09] MEDS: HumaLOG 300 UNITS/3 ML VIAL SC PRN ×2 (05:46→22:00)
[2020-04-09] MEDS: Ascorbic Acid 500 mg Chewable Tablet PO SCH (08:01)
[2020-04-09] MEDS: Enoxaparin Sodium 40 MG/0.4 ML SYRINGE SC SCH (08:01)
[2020-04-09] MEDS: Zinc Sulfate 220 MG CAP PO SCH (08:54)
[2020-04-09] MEDS: Dexamethasone 6 MG in Sodium Chloride 0.9% 50 ML IVPB SCH (08:54)
[2020-04-09] MEDS: Insulin Glargine 15 UNITS in Pre-Filled Syringe 1 EACH SC SCH ×2 (08:55→21:59)
[2020-04-09] MEDS: Benzonatate 100 MG CAP PO PRN ×2 (09:33→16:34)
--- NOTE | 2020-04-09 11:52 | PDOC.HOSPP ---
- Subjective Encounter Date: 04/09/20 Encounter Time: 10:45 Subjective: Patient seen and examined. No new complaints. No overnight events - Objective Vital Signs & Weight: Vital Signs (12 hours) Temp Pulse Resp BP Pulse Ox 04/09/20 10:33 71 18 92 L 04/09/20 09:30 97.9 F 58 L 18 112/74 92 L 04/09/20 04:00 93 L Weight Admit Weight 152 lb Weight 152 lb 8.958 oz Most Recent Monitor Data Heart Rate from ECG 99 NIBP 114/69 NIBP BP-Mean 84 Respiration from ECG 29 SpO2 99 Result Diagrams: 04/08/20 06:21 04/08/20 06:21 Additional Labs: Accuchecks 04/09/20 04/08/20 04/08/20 05:46 21:31 17:28 POC Glucose 311 H 255 H 321 H 04/08/20 12:52 POC Glucose 290 H Hospitalist ROS - Review of Systems Constitutional: reports: weakness. denies: fever, chills, sweats, malaise, other ENT: denies: ear pain, ear discharge, nose pain, nose discharge, nose congestion , mouth pain, mouth swelling, throat pain, throat swelling, other Respiratory: denies: cough, dry, shortness of breath, hemoptysis, SOB with excertion, pleuritic pain, sputum, wheezing, other Cardiovascular: denies: chest pain, palpitations, orthopnea, paroxysmal noc. dyspnea, edema, light headedness, other Gastrointestinal: denies: nausea, vomiting, abdominal pain, diarrhea, constipation, melena, hematochezia, other Genitourinary: denies: dysuria, frequency, incontinence, hematuria, retention, other Musculoskeletal: denies: neck pain, shoulder pain, arm pain, back pain, hand pain, leg pain, foot pain, other - Medication Medications: Active Medications Generic Name Dose Route Start Last Admin Trade Name Freq PRN Reason Stop Dose Admin Acetaminophen 650 mg 04/04/20 12:14 04/06/20 11:21 Tylenol PO 650 mg Q4H PRN Administration Headache/Fever/Mild Pain (1-3) Alprazolam 0.25 mg 04/06/20 09:55 04/06/20 11:21 Xanax PO 0.25 mg BIDPRN PRN Administration Anxiety Ascorbic Acid 1,000 mg 04/08/20 09:00 04/09/20 08:01 Vitamin C PO 1,000 mg DAILY ASIF Administration Benzonatate 200 mg 04/06/20 17:01 04/09/20 09:33 Tessalon PO 200 mg TIDPRN PRN Administration Cough Enoxaparin Sodium 40 mg 04/05/20 09:00 04/09/20 08:01 Lovenox SC 40 mg 0900 ASIF Administration Dexamethasone 6 mg/ Sodium 50.6 mls @ 100 mls/hr 04/07/20 09:00 04/09/20 08: 54 Chloride IVPB 50.6 mls DAILY ASIF Administration Insulin Glargine 15 units/ 0.15 mls @ 0 mls/hr 04/08/20 21:00 04/08/20 21:24 Miscellaneous Medication SC 0.15 mls HS ASIF Administration Insulin Glargine 15 units/ 0.15 mls @ 0 mls/hr 04/09/20 09:00 04/09/20 08:55 Miscellaneous Medication SC 0.15 mls QAM ASIF Administration Insulin Human Lispro 0 units 04/04/20 12:14 04/09/20 05:46 Humalog SC 8 unit .MODERATE SLIDING SC PRN Administration Moderate Correctional Scale Insulin Human Lispro 0 units 04/04/20 12:14 04/08/20 21:29 Humalog SC 3 unit .BEDTIME SLIDING SC PRN Administration Bedtime Correctional Scale Ondansetron HCl 4 mg 04/04/20 12:14 04/07/20 09:51 Zofran IVP 4 mg Q6H PRN Administration Nausea/Vomiting Pantoprazole Sodium 40 mg 04/08/20 09:00 04/09/20 08:01 Protonix PO 40 mg DAILY ASIF Administration Sodium Chloride 10 ml 04/04/20 21:00 04/09/20 08:01 Flush - Normal Saline IVF 10 ml Q12HR ASIF Administration Zinc Sulfate 220 mg 04/08/20 09:00 04/09/20 08:54 Zinc Sulfate PO 220 mg DAILY ASIF Administration - Exam General Appearance: NAD, awake alert Eye: PERRL, anicteric sclera ENT: normocephalic atraumatic, no oropharyngeal lesions Neck: supple, symmetric, no JVD Heart: RRR, no murmur, no gallops, no rubs Respiratory: CTAB, no wheezes, no rales Gastrointestinal: soft, non-tender, non-distended, normal bowel sounds Extremities: no cyanosis, no clubbing, no edema Skin: normal turgor, no lesions Neurological: no focal deficits Musculoskeletal: normal tone, normal strength Psychiatric: normal affect, normal behavior Hosp A/P (1) Acute respiratory failure with hypoxia Code(s): J96.01 - ACUTE RESPIRATORY FAILURE WITH HYPOXIA Status: Acute (2) Hypokalemia Code(s): E87.6 - HYPOKALEMIA Status: Acute (3) Pneumonia due to COVID-19 virus Code(s): U07.1 - COVID-19; J12.89 - OTHER VIRAL PNEUMONIA Status: Acute (4) Abnormal LFTs Code(s): R94.5 - ABNORMAL RESULTS OF LIVER FUNCTION STUDIES Status: Acute - Plan old records reviewed/req continue decadron repeat labs medication reviewed symptomatic treatment wean off oxygen as tolerated not ready yet for discharge 04/08/20 continue to wean off oxygen as tolerated ambulate in room on decadron continue vitamin supplement, medication reviewed and supportive care symptomatic treatment replace potassium today decadron increasing her blood sugar, will increase 15 unit sc bid 04/09/20 wean off oxygen as tolerated will consider dc tomorrow if no further need for oxygen start PT
[2020-04-10] MEDS: HumaLOG 300 UNITS/3 ML VIAL SC PRN ×2 (05:56→11:30)
[2020-04-10] MEDS: Insulin Glargine 15 UNITS in Pre-Filled Syringe 1 EACH SC SCH (09:34)
[2020-04-10] MEDS: Dexamethasone 6 MG in Sodium Chloride 0.9% 50 ML IVPB SCH (09:36)
[2020-04-10] MEDS: Ascorbic Acid 500 mg Chewable Tablet PO SCH (09:37)
[2020-04-10] MEDS: Enoxaparin Sodium 40 MG/0.4 ML SYRINGE SC SCH (09:37)
[2020-04-10] MEDS: Zinc Sulfate 220 MG CAP PO SCH (09:37)
--- NOTE | 2020-04-10 10:04 | PDOC.HOSPP ---
- Subjective Encounter Date: 04/10/20 Encounter Time: :20 Subjective: Patient seen and examined. No new complaints. No overnight events - Objective Vital Signs & Weight: Vital Signs (12 hours) Pulse Resp Pulse Ox 04/10/20 00:00 50 L 16 97 Weight Admit Weight 152 lb Weight 152 lb 8.958 oz Most Recent Monitor Data Heart Rate from ECG 99 NIBP 114/69 NIBP BP-Mean 84 Respiration from ECG 29 SpO2 99 Result Diagrams: 04/08/20 06:21 04/08/20 06:21 Additional Labs: Accuchecks 04/10/20 04/10/20 04/09/20 05:14 00:13 22:06 POC Glucose 348 H 377 H 422 H 04/09/20 13:03 POC Glucose 308 H Hospitalist ROS - Review of Systems ENT: denies: ear pain, ear discharge, nose pain, nose discharge, nose congestion , mouth pain, mouth swelling, throat pain, throat swelling, other Respiratory: denies: cough, dry, shortness of breath, hemoptysis, SOB with excertion, pleuritic pain, sputum, wheezing, other Cardiovascular: denies: chest pain, palpitations, orthopnea, paroxysmal noc. dyspnea, edema, light headedness, other Gastrointestinal: denies: nausea, vomiting, abdominal pain, diarrhea, constipation, melena, hematochezia, other Genitourinary: denies: dysuria, frequency, incontinence, hematuria, retention, other Musculoskeletal: denies: neck pain, shoulder pain, arm pain, back pain, hand pain, leg pain, foot pain, other - Medication Medications: Active Medications Generic Name Dose Route Start Last Admin Trade Name Rubinq PRN Reason Stop Dose Admin Acetaminophen 650 mg 04/04/20 12:14 04/06/20 11:21 Tylenol PO 650 mg Q4H PRN Administration Headache/Fever/Mild Pain (1-3) Alprazolam 0.25 mg 04/06/20 09:55 04/06/20 11:21 Xanax PO 0.25 mg BIDPRN PRN Administration Anxiety Ascorbic Acid 1,000 mg 04/08/20 09:00 04/10/20 09:37 Vitamin C PO 1,000 mg DAILY ASIF Administration Benzonatate 200 mg 04/06/20 17:01 04/09/20 16:34 Tessalon PO 200 mg TIDPRN PRN Administration Cough Enoxaparin Sodium 40 mg 04/05/20 09:00 04/10/20 09:37 Lovenox SC 40 mg 0900 ASIF Administration Dexamethasone 6 mg/ Sodium 50.6 mls @ 100 mls/hr 04/07/20 09:00 04/10/20 09: 36 Chloride IVPB 50.6 mls DAILY ASIF Administration Insulin Glargine 15 units/ 0.15 mls @ 0 mls/hr 04/08/20 21:00 04/09/20 21:59 Miscellaneous Medication SC 0.15 mls HS ASIF Administration Insulin Glargine 15 units/ 0.15 mls @ 0 mls/hr 04/09/20 09:00 04/10/20 09:34 Miscellaneous Medication SC 0.15 mls QAM ASIF Administration Insulin Human Lispro 0 units 04/04/20 12:14 04/10/20 05:56 Humalog SC 8 unit .MODERATE SLIDING SC PRN Administration Moderate Correctional Scale Insulin Human Lispro 0 units 04/04/20 12:14 04/09/20 22:00 Humalog SC 5 unit .BEDTIME SLIDING SC PRN Administration Bedtime Correctional Scale Ondansetron HCl 4 mg 04/04/20 12:14 04/07/20 09:51 Zofran IVP 4 mg Q6H PRN Administration Nausea/Vomiting Pantoprazole Sodium 40 mg 04/08/20 09:00 04/10/20 09:37 Protonix PO 40 mg DAILY ASIF Administration Sodium Chloride 10 ml 04/04/20 21:00 04/10/20 09:38 Flush - Normal Saline IVF 10 ml Q12HR ASIF Administration Zinc Sulfate 220 mg 04/08/20 09:00 04/10/20 09:37 Zinc Sulfate PO 220 mg DAILY ASIF Administration - Exam General Appearance: NAD, awake alert Eye: PERRL, anicteric sclera ENT: normocephalic atraumatic, no oropharyngeal lesions Neck: supple, symmetric, no JVD, no thyromegaly Heart: RRR, no murmur, no gallops, no rubs Respiratory: CTAB, no wheezes, no rales, no ronchi Gastrointestinal: soft, non-tender, non-distended, normal bowel sounds Extremities: no cyanosis, no clubbing, no edema Skin: normal turgor, no lesions Neurological: no focal deficits Musculoskeletal: normal tone, normal strength Psychiatric: normal affect, normal behavior Hosp A/P (1) Acute respiratory failure with hypoxia Code(s): J96.01 - ACUTE RESPIRATORY FAILURE WITH HYPOXIA Status: Acute (2) Hypokalemia Code(s): E87.6 - HYPOKALEMIA Status: Acute (3) Pneumonia due to COVID-19 virus Code(s): U07.1 - COVID-19; J12.89 - OTHER VIRAL PNEUMONIA Status: Acute (4) Abnormal LFTs Code(s): R94.5 - ABNORMAL RESULTS OF LIVER FUNCTION STUDIES Status: Acute - Plan old records reviewed/req continue decadron repeat labs medication reviewed symptomatic treatment wean off oxygen as tolerated not ready yet for discharge 04/08/20 continue to wean off oxygen as tolerated ambulate in room on decadron continue vitamin supplement, medication reviewed and supportive care symptomatic treatment replace potassium today decadron increasing her blood sugar, will increase 15 unit sc bid 04/09/20 wean off oxygen as tolerated will consider dc tomorrow if no further need for oxygen start PT 04/10/20 stable for discharge decadron 6 more days see discharge trey
[2020-04-10] MEDS: Benzonatate 100 MG CAP PO PRN (10:05)
--- NOTE | 2020-04-10 11:06 | DIS ---
DATE OF ADMISSION: 04/04/2020 DATE OF DISCHARGE: 04/10/2020 PRIMARY CARE PHYSICIAN: [facility] Call admission. DISCHARGE DISPOSITION: Home. PRIMARY DISCHARGE DIAGNOSES: 1. Acute respiratory failure with hypoxia due to COVID-19 pneumonia. 2. Bilateral pneumonia due to COVID-19 infection. 3. Hypokalemia, corrected. 4. Abnormal LFT due to hypoxia secondary to COVID-19 infection. SECONDARY DISCHARGE DIAGNOSIS: Diabetes type 1, on insulin. PRIMARY PROCEDURE/OPERATION: None. RADIOLOGIST INVESTIGATION: Chest x-ray was showing bibasilar infiltration. SIGNIFICANT LABORATORY DATA: WBC 3.6, hemoglobin 11.6, and platelets 388. Sodium 136 and creatinine 0.69. CRP 19. LDH 340. Ferritin 226. DISCHARGE MEDICATIONS: Vitamin C 1000 mg p.o. daily for 10 days, Tessalon 200 mg t.i.d. p.r.n. for cough, Decadron 6 mg p.o. daily for 6 more days, Lantus insulin 15 units subcu b.i.d., Protonix 40 mg p.o. daily, and zinc sulfate 220 mg p.o. daily. CONTRAINDICATION: None. CODE STATUS: Full code. INPATIENT CONSULTANTS: Dr. Weems was following while in hospital. Dr. Dodson was following while in the hospital. TEST RESULT PENDING ON DISCHARGE: None. ALLERGIES: NO KNOWN DRUG ALLERGIES. DISCHARGE PLAN: Post-hospital, the patient will follow up with primary care physician in 1 week. The patient is instructed to continue self-quarantine measures for additional two weeks. Necessary information about discharge planning for Coronavirus given to the patient. HOSPITAL COURSE: A 39-year-old female, who was admitted by Dr. Daugherty, please see his H and P for further details. On admission, the patient was having increasing shortness of breath. The patient was hypoxic when she arrived to emergency room. The patient was also having hyperglycemia. The patient was tested positive for COVID pneumonia. Her chest x-ray was showing bilateral infiltrations. She was treated with Decadron while in hospital with clinical improvement. By the time of discharge, the patient was on room air, ambulatory, and tolerating p.o. well. Necessary patient education about COVID-19 infection given. Overall, the patient is medically stable for discharge and she will follow up with primary care physician in 2 weeks. Job ID: [id number]
[2020-04-10 11:59] VITALS: BP 139/84; TEMP 97.4
== END 2020-04-10 14:18 | disposition home or self-care (01) | DRG 177 ==
LOC: CCU 10:11 → T4-A 04-06 14:11
PROVIDERS: ADMIT Internal Medicine; ATTEND Internal Medicine
PROC: 8E0ZXY6 Isolation (ICD-10-PCS; principal; 2020-04-04)
DX: U07.1 COVID-19 (principal); J12.89 Other viral pneumonia; J96.01 Acute respiratory failure with hypoxia; E10.10 Type 1 diabetes mellitus with ketoacidosis without coma; E87.6 Hypokalemia; Z79.4 Long term (current) use of insulin
CPT/HCPCS: 36415; 36416; 36430; 71045; 80048; 80053; 80076; 82728; 83615; 83735; 85025; 86140; 86850; 86900; 86901; 87040; 87149; J1100; J1650; J1815; J1956; J2405